=== PATIENT | female | born 1930 | race Caucasian/White ===

== ENCOUNTER 2021-02-09 15:05 | Emergency (ER) | payer MEDICARE, OTHER ==
[~2021-02-09] VITALS: Ht 144.8 cm; Wt 51.8 kg
[2021-02-09 15:11] VITALS: BP 160/60
[2021-02-09 16:34] LABS: D-DIMER 0.45 MG/L FEU (0-0.50)
== END 2021-02-09 17:10 | disposition home or self-care (01) ==
LOC: ER 15:06
DX: Z02.89 Encounter for other administrative examinations (principal); R22.9 Localized swelling, mass and lump, unspecified; Z88.2 Allergy status to sulfonamides; Z88.5 Allergy status to narcotic agent
CPT/HCPCS: 36415; 85379; 99283